=== PATIENT | female | born 1980 | race Two or more races ===

== ENCOUNTER 2024-04-30 05:35 | Emergency (ER) | payer OTHER ==
[~2024-04-30] VITALS: Ht 154.9 cm; Wt 63.6 kg
[2024-04-30] MEDS: ONDANSETRON HCL 4 MG/2 ML VIAL IV ONE (06:32)
[2024-04-30] MEDS: MORPHINE SULFATE 4 MG/ML SYR/VIAL IV ONE (06:32)
[2024-04-30] MEDS: SODIUM CHLORIDE 0.9% 1,000 ML IV ONE (06:32)
[2024-04-30] MEDS: KETOROLAC TROMETH 30 MG/ML 1ML VIAL IV ONE (08:33)
[2024-04-30] MEDS: SODIUM CHLORIDE 0.9% 1,000 ML IVB ONE (08:37)
[2024-04-30] MEDS: METOCLOPRAMIDE HCL 5MG/ml INJ 2ml VIAL IV ONE (08:38)
[2024-04-30 08:42] LABS: Urine Bacteria FEW /hpf (None Seen); Urine Blood 2+ /uL (Negative); Urine Clarity Clear (Clear); Urine Color Light-Yellow (Yellow); Urine Mucus FEW (None Seen); Urine Protein, UAD TRACE (Negative); Urine Specific Gravity 1.011 (1.001-1.035); Urine Urobilinogen Normal (Negative); Urine WBC 81 /hpf (0 - 5)
[2024-04-30 08:44] VITALS: PULSE 75; RESP 18; O2SAT 100
[2024-04-30 09:22] LABS: Basophils # (auto) 0.1 10 ^3/uL (0-0.2); Basophils % (auto) 0.7 % (0.0-2.0); Eosinophils # (auto) 0 10 ^3/uL (0-0.8); Eosinophils % (auto) 0.1 % (0.0-7.0); Hematocrit 36.8 % (36.0-46.0); Hemoglobin 12.5 g/dL (12.2-16.2); Lymphocytes # (auto) 0.7 10 ^3/uL (0.4-5.4); Mean Corpuscular Hemoglobin 28.1 pg (28.0-32.0); Mean Corpuscular Volume 82.5 fL (80.0-100.0); Monocytes # (auto) 0.6 10 ^3/uL (0-1.3); Monocytes % (auto) 3.8 % (0.0-12.0); Neutrophils # (auto) 13.3 10 ^3/uL (1.6-8.6); Neutrophils % (auto) 90.4 % (37.0-80.0); Platelet Count (auto) 284 10^3/uL (140-450); Red Blood Cells 4.46 10^6/uL (4.0-5.20); Red Cell Distribution Width 15.7 % (11.8-14.3); White Blood Cell 14.7 10^3/uL (4.4-10.8)
[2024-04-30 09:36] LABS: Chloride 111 mmol/L (98-107); Potassium 3.6 mmol/L (3.5-5.1); Sodium 140 mmol/L (136-145)
[2024-04-30 09:37] LABS: Anion Gap 8 (5-15); Carbon Dioxide 21 mmol/L (20-30)
[2024-04-30 09:38] LABS: Calcium 9.1 mg/dL (8.7-10.4)
[2024-04-30 09:42] LABS: Glucose 93 mg/dL (74-106)
[2024-04-30 09:43] LABS: BUN/Creatinine Ratio 13.6 (10.0-20.0); Blood Urea Nitrogen 12 mg/dL (9-23)
[2024-04-30] MEDS ORDERED: BACDST PO (09:47)
[2024-04-30] MEDS ORDERED: DICL50TA2 PO (09:47)
[2024-04-30 10:11] VITALS: BP 153/86; PULSE 73; RESP 16; TEMP 98.7; O2SAT 100
== END 2024-04-30 10:12 | disposition home or self-care (01) ==
LOC: ER 05:35
DX: N20.1 Calculus of ureter (principal); D25.1 Intramural leiomyoma of uterus; Z98.890 Other specified postprocedural states; Z79.899 Other long term (current) drug therapy
CPT/HCPCS: 36415; 74176; 80048; 81001; 81025; 85025; 96361; 96374; 96375; 99285; J1885; J2270; J2405; J7030

== ENCOUNTER 2024-08-19 20:07 | Emergency (ER) | payer OTHER ==
[~2024-08-19] VITALS: Ht 154.9 cm; Wt 63.5 kg
[~2024-08-19 20:07] MED LIST: BACDST PO; DICL50TA2 PO
--- NOTE | 2024-08-19 20:25 | ED.PDOC ---
History of Present Illness HPI Comments 44 y/o F, with a Hx of nephrolithiasis, HTN, uterine fibroids, tubal ligation, hernia repair, and C-sections, presents with spouse for c/o right-sided flank and back pain, right-sided facial numbness, and nausea, today. Patient endorses on sudden and unprovoked onset of symptoms an 1.5 hour prior to arrival at ED triage (1840), this evening. Patient comments on flank pain being a 10/10 and radiating towards her right-lower back, with no improvement or relief with prescribed pain medication she was given following dental work in June 2024. Patient also informs on being on her period, currently, and reports no recent injuries, sick contact, travel, or other relevant or pertinent Hx. She denies having any urinary symptoms, vomiting, diarrhea, constipation, facial droop, lightheadedness, or other associated symptoms or modifiers at this time. Time Seen by MD: 20:10 Reviewed Notes: Nurses Notes, Medications, Allergies Allergies: Coded Allergies: NO KNOWN ALLERGIES (Unverified , 04/30/24) Home Meds Active Scripts Sulfamethoxazole W/Trimethopri (Bactrim Ds Tablet) 1 Tab Tb, 1 TAB PO BID for 7 Days, #14 TAB Prov:DONAVAN BLISS MD 04/30/24 Diclofenac Potassium (Diclofenac Potassium) 50 Mg Tab, 1 TAB PO TIDP for 5 Days, #15 TAB Prov:DONAVAN BLISS MD 04/30/24 Information Source: Patient, Spouse Mode of Arrival: Ambulatory Severity: Moderate Timing: Hours Duration: Since onset Prehospital treatment: Other (see HPI) Past Medical History PAST MEDICAL HISTORY: HTN, Kidney Stones Surgical History: (4x), Hernia Repair, Tubal Ligation 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 Family History Family History: Reviewed,noncontributory to illness, No family hx of Cancer, No family hx of DM, No family hx of Heart blanca, No family hx of HTN, No family hx ofKidney blanca, No family hx of Liver blanca, No family hx of Lung blanca, No family hx of Stroke Social History Smoker: Non-Smoker Alcohol: Occasionally Drugs: Denies Drug Use Lives In: Home Constitutional: denies: chills, diaphoresis, fatigue, fever, malaise, sweats, weakness, others EENTM: denies: blurred vision, double vision, ear bleeding, ear discharge, ear drainage, ear pain, ear ringing, eye pain, eye redness, hearing loss, mouth pain, mouth swelling, nasal discharge, nose bleeding, nose congestion, nose pain, photophobia, tearing, throat pain, throat swelling, voice changes, others Respiratory: denies: cough, hemoptysis, orthopnea, SOB at rest, shortness of breath, SOB with excertion, stridor, wheezing, others Cardiovascular: denies: chest pain, dizzy spells, diaphoresis, Dyspnea on exertion, edema, irregular heart beat, left arm pain, lightheadedness, palpitations, PND, syncope, others Gastrointestinal: reports: nausea; denies: abdomen distended, abdominal pain, blood streaked bowels, constipated, diarrhea, dysphagia, difficulty swallowing, hematemesis, melena, poor appetite, poor fluid intake, rectal bleeding, rectal pain, vomiting, others Genitourinary: reports: flank pain (right-sided); denies: abnormal vagina bleeding, burning, dyspareunia, dysuria, frequency, hematuria, incontinence, pain, , vagina discharge, urgency, others Neurological: reports: numbness (right-sided facial numbness ); denies: dizziness, fainting, headache, left sided numbness, left sided weakness, paresthesia, pre-existing deficit, right sided numbness, right sided weakness, seizure, speech problems, tingling, tremors, weakness, others Musculoskeletal: reports: back pain (right-sided ); denies: gout, joint pain, joint swelling, muscle pain, muscle stiffness, neck pain, others Integumetry: denies: bruises, change in color, change in hair/nails, dryness, laceration, lesions, lumps, rash, wounds, others Allergic/Immunocompromised: denies: Difficulty Healing, Frequent Infections, Hives, Itching, others Hematologic/Lymphatic: denies: anemia, blood clots, easy bleeding, easy bruising, swollen glands, others Endocrine: denies: excessive hunger, excessive sweating, excessive thirst, excessive urination, flushing, intolerance to cold, intolerance to heat, unexplained weight gain, unexplained weight loss, others Psychiatric: denies: anxiety, bipolar disorder, depression, hopeless, panic disorder, schizophrenia, sleepless, suicidal, others All Other Systems: Reviewed and Negative Physical Exam General Appearance: Moderate Distress HEENT: Normal ENT Inspection, Pharynx Normal, TMs Normal Neck: Full Range of Motion, Non-Tender, Normal, Normal Inspection Respiratory: Chest Non-Tender, Lungs Clear, No Accessory Muscle Use, No Respiratory Distress, Normal Breath Sounds Cardiovascular: No Edema, No JVD, No Murmur, No Gallop, Normal Peripheral Pulses, Regular Rate/Rhythm Breast Exam: Deferred Gastrointestinal: No Organomegaly, Non Tender, No Pulsatile Mass, Normal Bowel Sounds, Soft Genitalia: Deferred Pelvic: Deferred Rectal: Deferred Extremities: No calf tenderness, Normal capillary refill, No pedal edema Musculoskeletal : Location: Right Extremity Location: Back Apperance: Tenderness: Moderate Neurologic: Alert, therapeutic recreation leader II-XII nml as Tested, No Motor Deficits, Normal Affect, Normal Mood, No Sensory Deficits Cerebellar Function: Normal Reflexes: Normal Skin: Dry, Normal Color, Warm Lymphatic: No Adenopathy Was a procedure done? Was a procedure done?: No Differential Dx Considerations may include: nephrolithiasis, ovarian cysts, ovarian torsion, uterine fibroids, pyelonephritis, cystitis, cholecystitis, cholelithiasis, acute abdomen, musculoskeletal pain X-Ray, Labs, Meds, VS Vital Signs Date Time Temp Pulse Resp B/P (MAP) Pulse Ox O2 Delivery O2 Flow Rate FiO2 08/19/24 20:31 93 18 181/100 08/19/24 20:15 97.5 93 18 181/100 (127) 99 Lab Test 08/19/24 20:54 08/19/24 20:44 Range/Units White Blood Count Pending Red Blood Count Pending Hemoglobin Pending Hematocrit Pending Mean Corpuscular Volume Pending Mean Corpuscular Hemoglobin Pending Mean Corpuscular Hemoglobin Concent Pending Red Cell Distribution Width Pending Platelet Count Pending Mean Platelet Volume Pending Neutrophils (%) (Auto) Pending Lymphocytes (%) (Auto) Pending Monocytes (%) (Auto) Pending Basophils (%) (Auto) Pending Neutrophils # (Auto) Pending Lymphocytes # (Auto) Pending Monocytes # (Auto) Pending Sodium Level Pending Potassium Level Pending Chloride Level Pending Carbon Dioxide Level Pending Anion Gap Pending Blood Urea Nitrogen Pending Creatinine Pending Glomerular Filtration Rate Calc Pending BUN/Creatinine Ratio Pending Serum Glucose Pending Calcium Level Pending Urine Color Red H Yellow Urine Clarity Ex.turbid Clear Urine pH 6.0 5.0-9.0 Urine Specific Bath 1.009 1.001-1.035 Urine Protein 2+ H Negative Urine Ketones Negative Negative Urine Blood 3+ H Negative /uL Urine Nitrite Negative Negative Urine Bilirubin Negative Negative Urine Urobilinogen Normal Negative mg/dL Urine Leukocyte Esterase 1+ Negative /uL Urine RBC 2995 0 - 4 /hpf Urine WBC None seen 0 - 5 /hpf Urine Squamous Epithelial Cells None seen <5 /hpf Urine Bacteria None seen None Seen /hpf Urine Glucose Normal Normal mg/dL Current Medications Medications (Trade) Dose Ordered Sig/Rodrigue Route Start Time Stop Time Status Last Admin Ondansetron HCl (Zofran) 4 mg ONCE ONCE IV 08/19/24 20:15 08/19/24 20:16 DC 08/19/24 20:30 Sodium Chloride 1,000 ml @ 1,000 mls/hr Q1H ONCE IVB 08/19/24 20:15 08/19/24 21:14 DC 08/19/24 20:31 Morphine Sulfate 4 mg ONCE ONCE IV 08/19/24 20:15 08/19/24 20:16 DC 08/19/24 20:31 Ketorolac Tromethamine (Toradol Injection) 30 mg ONCE ONCE IV 08/19/24 20:15 08/19/24 20:17 DC 08/19/24 20:30 CT scan of the abdomen and pelvis shows: IMPRESSION: 1. Moderate right hydroureteronephrosis. No obstructing calculus along the course of the right ureter. 2. 7 mm calculus in the interpolar right kidney. 3. Anemia suggested. Correlate with CBC. 4. Enlarged fibroid uterus. 5. Right ovarian cyst which could reflect a follicular cyst if the patient is still menstruating. Correlate with clinical history. The urine test is positive for blood The patient was given Zofran 4 mg IV push The patient was given a 1 L bolus of normal saline The patient was given morphine 4 mg IV push for the pain The patient was given Toradol 30 mg IV push The patient was still having pain so we did repeat the dose of morphine 4 mg IV push Patient signed out to Dr. Newton Patient is a [facility] patient and so we are contacting [facility] for either transfer for authorization for admission Images Reviewed?: Images reviewed and evaluated by me Time of 1ST Reevaluation: 20:40 Reevaluation 1ST: Unchanged Patient Education/Counseling: Diagnosis, Treatment, Prognosis Family Education/Counseling: Diagnosis, Treatment, Prognosis Departure 1 Departure Time of Disposition: 21:34 Impression: Primary Impression: Right flank pain Additional Impression: Ureterolithiasis Disposition: 30 STILL A PATIENT Condition: Fair Critical Care Note Critical Care Time?: No Stability Stability form required: No Heart Score Heart Score: Heart Score Response (Comments) Value History N/A 0 EKG N/A 0 Age N/A 0 Risk Factors N/A 0 Troponin N/A 0 Total 0 I personally scribed for FATOUMATA SIERRA MD ([email or web address]) on 08/19/24 at 20:25. Electronically submitted by Grayson Pelayo ([email or web address]). FATOUMATA SIERRA MD Aug 19, 2024 20:25
[2024-08-19] MEDS: ONDANSETRON HCL 4 MG/2 ML VIAL IV ONE (20:30)
[2024-08-19] MEDS: KETOROLAC TROMETH 30 MG/ML 1ML VIAL IV ONE (20:30)
[2024-08-19] MEDS: SODIUM CHLORIDE 0.9% 1,000 ML IVB ONE (20:31)
[2024-08-19] MEDS: MORPHINE SULFATE 4 MG/ML SYR/VIAL IV ONE ×2 (20:31→22:21)
[2024-08-19 20:47] LABS: Urine Bacteria None Seen /hpf (None Seen); Urine WBC None Seen /hpf (0 - 5)
[2024-08-19 21:06] LABS: Urine Blood 3+ /uL (Negative); Urine Clarity Ex.Turbid (Clear); Urine Color Red (Yellow); Urine Protein, UAD 2+ (Negative); Urine Specific Gravity 1.009 (1.001-1.035); Urine Urobilinogen Normal (Negative)
--- NOTE | 2024-08-19 21:16 | DVH ---
CLINICAL HISTORY: right flank pain TECHNIQUE: CT of the abdomen and pelvis was performed without intravenous contrast. This exam was per formed according to our departmental dose optimization program. Up-to-date CT equipment and radiation dose reduction techniques are utilized as appropriate. WID: COMPARISON: CT CT AB PEL WO CON-NO ORAL OR IV on DOS: 04/30/24 FINDINGS: Lower Thorax: Partially imaged bilateral breast implants. Normal-sized heart. Slight hypodensity of t he blood pool relative to the myocardium indicative of anemia. Unchanged sub 5 mm left lower lobe pul monary nodules on series 3 images 15 and 22 Liver and Biliary system: Unremarkable. Spleen: Unremarkable. Adrenal Glands and Kidneys: Normal adrenal glands. There is moderate right hydroureteronephrosis. No obstructing calculus along the course of the right ureter. There is a 7 mm calculus in the interpola r right kidney. Normal left kidney. Pancreas and Retroperitoneum: Unremarkable. Aorta and Major Vessels: Normal caliber aortoiliac vessels. Trace calcified plaque in the aortoiliac vessels. Bowel, Mesentery and Peritoneal space: Normal caliber small and large bowel. Normal appendix. No free air or fluid collection. Pelvis: Enlarged fibroid uterus. there is a right ovarian/ adnexal cyst measuring 3.6 cm on series 2, image 60. Normal minimally distended urinary bladder. There is no pelvic lymphadenopathy. Abdominal wall and Osseous Structures: Minor Lower thoracic and lumbar spondylosis. No destructive os seous lesion IMPRESSION: 1. Moderate right hydroureteronephrosis. No obstructing calculus along the course of the right urete r. 2. 7 mm calculus in the interpolar right kidney. 3. Anemia suggested. Correlate with CBC. 4. Enlarged fibroid uterus. 5. Right ovarian cyst which could reflect a follicular cyst if the patient is still menstruating. Co rrelate with clinical history.
[2024-08-19 21:33] LABS: Basophils # (auto) 0 10 ^3/uL (0-0.2); Basophils % (auto) 0.4 % (0.0-2.0); Eosinophils # (auto) 0.3 10 ^3/uL (0-0.8); Eosinophils % (auto) 6.3 % (0.0-7.0); Hematocrit 33.7 % (36.0-46.0); Hemoglobin 11.3 g/dL (12.2-16.2); Lymphocytes # (auto) 2.5 10 ^3/uL (0.4-5.4); Lymphocytes % (auto) 46.6 % (10.0-50.0); Mean Corpuscular Hemoglobin 28.6 pg (28.0-32.0); Mean Corpuscular Hgb Conc. 33.7 g/dL (32.0-36.0); Mean Corpuscular Volume 84.7 fL (80.0-100.0); Monocytes # (auto) 0.5 10 ^3/uL (0-1.3); Neutrophils % (auto) 36.7 % (37.0-80.0); Nucleated Red Blood Cells % 0.2 %; Platelet Count (auto) 303 10^3/uL (140-450); Red Blood Cells 3.97 10^6/uL (4.0-5.20); Red Cell Distribution Width 15.4 % (11.8-14.3); White Blood Cell 5.3 10^3/uL (4.4-10.8)
[2024-08-19 21:38] LABS: Potassium 3.9 mmol/L (3.5-5.1); Sodium 140 mmol/L (136-145)
[2024-08-19 21:39] LABS: Anion Gap 9 (5-15); Calcium 9.1 mg/dL (8.7-10.4); Carbon Dioxide 23 mmol/L (20-31)
[2024-08-19 21:44] LABS: BUN/Creatinine Ratio 15.4 (10.0-20.0); Blood Urea Nitrogen 14 mg/dL (9-23); Glucose 89 mg/dL (74-106)
[2024-08-19 22:16] LABS: Chloride 108 mmol/L (98-107)
[2024-08-19 22:30] VITALS: PULSE 78; RESP 16; O2SAT 96
[2024-08-19 23:13] VITALS: BP 158/99; PULSE 81; RESP 19; O2SAT 97
== END 2024-08-19 23:22 | disposition left against medical advice (07) ==
LOC: ER 20:07
DX: N13.2 Hydronephrosis with renal and ureteral calculous obstruction (principal); M54.59 Other low back pain; I10 Essential (primary) hypertension; Z87.442 Personal history of urinary calculi; Z98.890 Other specified postprocedural states
CPT/HCPCS: 36415; 74176; 80048; 81001; 85025; 96361; 96374; 96375; 96376; 99285; J1885; J2270; J2405; J7030

== ENCOUNTER 2024-09-01 21:02 | Emergency (ER) | payer OTHER ==
[~2024-09-01] VITALS: Ht 160 cm; Wt 59.1 kg
[2024-09-01] MEDS: ONDANSETRON HCL 4 MG/2 ML VIAL IV ONE (21:15)
[2024-09-01] MEDS: fentaNYL CITRATE 100 MCG/2 ML VL IV ONE (21:15)
[2024-09-01] MEDS: SODIUM CHLORIDE 0.9% 1,000 ML IV ONE ×2 (21:15)
--- NOTE | 2024-09-01 21:26 | ED.PDOC ---
History of Present Illness HPI Comments 44 y/o F, with a Hx of uterine fibroids, nephrolithiasis, hernia repair, tubal ligation, and 4xC-sections, is BIBA for c/o non-radiating, right-sided flank pain and urine incontinence, today. Per EMS report, patient was commented to have sudden onset on pain 45x minutes prior to ED arrival, this evening. She is stated to have been evaluated for a previous onset of similar pain in the past, recently, and was told on having kidney stone prior to leaving [facility] during previous ED visits, due to not wanting to be transferred to another facility at that time. En route, patient was given Tylenol, with minimal improvement. She denies having any dysuria, hematuria, fever, chills, or other associated symptoms or modifiers at this time. Chief Complaint: Flank Pain Time Seen by MD: 21:10 Reviewed Notes: Nurses Notes, Felt Cutting Machine Operator Notes, Medications, Allergies Allergies: Coded Allergies: NO KNOWN ALLERGIES (Unverified , 04/30/24) Home Meds Active Scripts Sulfamethoxazole W/Trimethopri (Bactrim Ds Tablet) 1 Tab Tb, 1 TAB PO BID for 7 Days, #14 TAB Prov:DONAVAN BLISS MD 04/30/24 Diclofenac Potassium (Diclofenac Potassium) 50 Mg Tab, 1 TAB PO TIDP for 5 Days, #15 TAB Prov:DONAVAN BLISS MD 04/30/24 Information Source: Patient, Emergency Med Personnel Mode of Arrival: EMS Severity: Moderate Timing: Minutes Duration: Since onset Prehospital treatment: 12 Lead EKG, Tax Attorney, Pain Meds (Tylenol ) Past Medical History PAST MEDICAL HISTORY: HTN, Kidney Stones Surgical History: , Hernia Repair, 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 Family History Family History: Reviewed,noncontributory to illness, No family hx of Cancer, No family hx of DM, No family hx of Heart blanca, No family hx of HTN, No family hx ofKidney blanca, No family hx of Liver blanca, No family hx of Lung blanca, No family hx of Stroke Social History Smoker: Non-Smoker Alcohol: Occasionally Drugs: Denies Drug Use Lives In: Home Genitourinary: reports: flank pain (right side ), incontinence (urine ) All Other Systems: Reviewed and Negative (negative unless otherwise stated above or in HPI) Physical Exam General Appearance: Moderate Distress, Normal HEENT: Normal ENT Inspection, Pharynx Normal, TMs Normal Neck: Full Range of Motion, Non-Tender, Normal, Normal Inspection Respiratory: Chest Non-Tender, Lungs Clear, No Accessory Muscle Use, No Respiratory Distress, Normal Breath Sounds Cardiovascular: No Edema, No JVD, No Murmur, No Gallop, Normal Peripheral Pulses, Regular Rate/Rhythm Breast Exam: Deferred Gastrointestinal: No Organomegaly, Non Tender, No Pulsatile Mass, Normal Bowel Sounds, Soft Genitalia: Deferred Pelvic: Tender Adnexa (Right-sided moderate tenderness) Rectal: Deferred Extremities: No calf tenderness, Normal capillary refill, Normal inspection, Normal range of motion, Non-tender, No pedal edema Musculoskeletal : Location: Right Extremity Location: Other (CVA) Apperance: Normal, Tenderness Neurologic: Alert, light bulb tester II-XII nml as Tested, No Motor Deficits, Normal Affect, Normal Mood, No Sensory Deficits Cerebellar Function: Normal Reflexes: Normal Skin: Dry, Normal Color, Warm Lymphatic: No Adenopathy Was a procedure done? Was a procedure done?: No Differential Dx Considerations may include: nephrolithiasis, ovarian cysts, ovarian torsion, uterine fibroids X-Ray, Labs, Meds, VS Vital Signs Date Time Temp Pulse Resp B/P (MAP) Pulse Ox O2 Delivery O2 Flow Rate FiO2 09/01/24 21:15 156/80 09/01/24 21:04 98.8 96 20 156/80 (105) 96 Lab Test 09/01/24 21:55 Range/Units White Blood Count Pending Red Blood Count Pending Hemoglobin Pending Hematocrit Pending Mean Corpuscular Volume Pending Mean Corpuscular Hemoglobin Pending Mean Corpuscular Hemoglobin Concent Pending Red Cell Distribution Width Pending Platelet Count Pending Mean Platelet Volume Pending Neutrophils (%) (Auto) Pending Lymphocytes (%) (Auto) Pending Monocytes (%) (Auto) Pending Basophils (%) (Auto) Pending Neutrophils # (Auto) Pending Lymphocytes # (Auto) Pending Monocytes # (Auto) Pending Sodium Level Pending Potassium Level Pending Chloride Level Pending Carbon Dioxide Level Pending Anion Gap Pending Blood Urea Nitrogen Pending Creatinine Pending Glomerular Filtration Rate Calc Pending BUN/Creatinine Ratio Pending Serum Glucose Pending Calcium Level Pending Total Bilirubin Pending Aspartate Amino Transferase (AST) Pending Alanine Aminotransferase (ALT) Pending Alkaline Phosphatase Pending Total Protein Pending Albumin Pending Current Medications Medications (Trade) Dose Ordered Sig/Rodrigue Route Start Time Stop Time Status Last Admin Sodium Chloride 1,000 ml @ 1,000 mls/hr Q1H ONCE IV 09/01/24 21:15 09/01/24 22:14 09/01/24 21:15 Ondansetron HCl (Zofran) 4 mg ONCE ONCE IV 09/01/24 21:15 09/01/24 21:17 DC 09/01/24 21:15 Fentanyl Citrate 100 mcg ONCE ONCE IV 09/01/24 21:15 09/01/24 21:17 DC 09/01/24 21:15 Signed PATIENT: RAYMOND CULLEN ACCT: [id number] UNIT: [id number] : 1980 LOC: ER ROOM / BED: / AGE / SEX: 44 / F ADM STATUS: REG ER SERVICE 13 ORDERING PHYSICIAN: ANDREINA ARCE MD PROCEDURE(s): ABPL - CT AB PEL WO CON-NO ORAL OR IV REASON: kidney stones ORDER NUMBER(s): [id number], ACCESSION NUMBER(s): [id number] Exam: CT CT AB PEL WO CON-NO ORAL OR IV History: kidney stones Comparison Study: CT abdomen pelvis 08/19/2024 TECHNIQUE: Multidetector CT of the abdomen was performed from lung bases to pubic symphysis. Imaging was performed without IV contrast. Axial, coronal and sagittal multiplanar reformats were obtained from the axial data set by the technologist. Radiation Dose Information: CT Dose: CTDI volume is 5.36 mGy. Dose-length product is 301.14 mGy*cm FINDINGS: Evaluation of solid organs is limited due to lack of intravenous contrast use. Findings: Lung Bases: No acute or significant lung base finding. Normal heart size. No pleural or pericardial effusion. Liver: The liver is normal in size. No focal lesions. Gallbladder and Biliary Tree: Unremarkable Spleen: Unremarkable Pancreas: The pancreas is grossly normal in appearance. Adrenal Glands: Unremarkable Kidneys: Moderate right hydro nephro ureter. No definite obstructing calculus is appreciated. 0.7 cm calculus at the right midpole kidney. The left kidney appears normal. Bladder: Grossly unremarkable for degree of distention. Bowel: The stomach is grossly normal in appearance. Small bowel and colon are normal in caliber and distribution. The appendix is not visualized; however, no secondary findings of acute appendicitis identified. Ascites: Absent Lymphadenopathy: No mesenteric, retroperitoneal or periportal lymphadenopathy. Abdominal Wall and Mesentery: Unremarkable. Vasculature: The visualized abdominal aorta is normal in size and caliber. Evaluation of abdominal and pelvic vessels is limited due to lack of intravenous contrast. Pelvic Organs: Prominent, fibroid uterus. Right adnexal 3.7 cm cystic structure. Musculoskeletal: No aggressive focal bony lesions, acute fractures or dislocation. Soft tissues: Unremarkable IMPRESSION: 1. Moderate right hydro nephro ureter, similar to 12/19/2023. No definite obstructing ureteral calculus is appreciated. 2. Right midpole kidney 0.7 cm calculus. 3. Right adnexal cystic lesion measuring 3.7 cm. Could be further evaluated with pelvic ultrasound. 4. Fibroid uterus. Radiation optimization: All CT scans at this facility use at least one of these dose optimization techniques: automated exposure control mA and/or kV adjustment per patient size (includes targeted exams where dose is matched to clinical indication) or iterative reconstruction. HS:Y Labs are pending. Patient was given fentanyl and Toradol for pain. The patient will be admitted to the hospitalist for further evaluation and care for kidney stone in right and on adnexal cysts. Urology will be consulted. Time of 1ST Reevaluation: 21:40 Reevaluation 1ST: Unchanged Patient Education/Counseling: Diagnosis, Treatment Family Education/Counseling: No Family Present Departure 1 Departure Time of Disposition: 22:05 Impression: Primary Impression: Right ureteral calculus Additional Impression: Adnexal cyst Disposition: ADMITTED INPATIENT Admit to: Med Surg Condition: Guarded Critical Care Note Critical Care Time?: No Stability Stability form required: No Heart Score Heart Score: Heart Score Response (Comments) Value History N/A 0 EKG N/A 0 Age N/A 0 Risk Factors N/A 0 Troponin N/A 0 Total 0 I personally scribed for ANDREINA ARCE MD ([email or web address]) on 09/01/24 at 21:26. Electronically submitted by Grayson Pelayo ([email or web address]). ANDREINA ARCE MD Sep 01, 2024 21:26
--- NOTE | 2024-09-01 21:51 | DVH ---
Exam: CT CT AB PEL WO CON-NO ORAL OR IV History: kidney stones Comparison Study: CT abdomen pelvis 08/19/2024 TECHNIQUE: Multidetector CT of the abdomen was performed from lung bases to pubic symphysis. Imaging was performed without IV contrast. Axial, coronal and sagittal multiplanar reformats were obtained fr om the axial data set by the technologist. Radiation Dose Information: CT Dose: CTDI volume is 5.36 mGy. Dose-length product is 301.14 mGy*cm FINDINGS: Evaluation of solid organs is limited due to lack of intravenous contrast use. Findings: Lung Bases: No acute or significant lung base finding. Normal heart size. No pleural or pericardial effusion. Liver: The liver is normal in size. No focal lesions. Gallbladder and Biliary Tree: Unremarkable Spleen: Unremarkable Pancreas: The pancreas is grossly normal in appearance. Adrenal Glands: Unremarkable Kidneys: Moderate right hydro nephro ureter. No definite obstructing calculus is appreciated. 0.7 cm calculus at the right midpole kidney. The left kidney appears normal. Bladder: Grossly unremarkable for degree of distention. Bowel: The stomach is grossly normal in appearance. Small bowel and colon are normal in caliber and d istribution. The appendix is not visualized; however, no secondary findings of acute appendicitis id entified. Ascites: Absent Lymphadenopathy: No mesenteric, retroperitoneal or periportal lymphadenopathy. Abdominal Wall and Mesentery: Unremarkable. Vasculature: The visualized abdominal aorta is normal in size and caliber. Evaluation of abdominal a nd pelvic vessels is limited due to lack of intravenous contrast. Pelvic Organs: Prominent, fibroid uterus. Right adnexal 3.7 cm cystic structure. Musculoskeletal: No aggressive focal bony lesions, acute fractures or dislocation. Soft tissues: Unremarkable IMPRESSION: 1. Moderate right hydro nephro ureter, similar to 12/19/2023. No definite obstructing ureteral calcul us is appreciated. 2. Right midpole kidney 0.7 cm calculus. 3. Right adnexal cystic lesion measuring 3.7 cm. Could be further evaluated with pelvic ultrasound. 4. Fibroid uterus. Radiation optimization: All CT scans at this facility use at least one of these dose optimization te chniques: automated exposure control mA and/or kV adjustment per patient size (includes targeted exa ms where dose is matched to clinical indication) or iterative reconstruction. HS:Y
[2024-09-01 22:22] LABS: Alanine Aminotransferase 17 U/L (7-40); Albumin 4.4 g/dL (3.2-4.8); Alkaline Phosphatase 64 U/L (46-116); Anion Gap 9 (5-15); Aspartate Aminotransferase 13 U/L (13-40); BUN/Creatinine Ratio 11.9 (10.0-20.0); Bilirubin, Total 0.4 mg/dL (0.2-1.0); Blood Urea Nitrogen 13 mg/dL (9-23); Calcium 10.1 mg/dL (8.7-10.4); Carbon Dioxide 25 mmol/L (20-31); Chloride 104 mmol/L (98-107); Glucose 101 mg/dL (74-106); Potassium 4.1 mmol/L (3.5-5.1); Sodium 138 mmol/L (136-145); Total Protein 7.1 g/dL (5.7-8.2)
[2024-09-01 22:25] LABS: Basophils # (auto) 0.1 10 ^3/uL (0-0.2); Basophils % (auto) 1.3 % (0.0-2.0); Eosinophils # (auto) 0.2 10 ^3/uL (0-0.8); Eosinophils % (auto) 3.7 % (0.0-7.0); Hematocrit 28.1 % (36.0-46.0); Hemoglobin 9.7 g/dL (12.2-16.2); Lymphocytes # (auto) 1.4 10 ^3/uL (0.4-5.4); Lymphocytes % (auto) 26.1 % (10.0-50.0); Mean Corpuscular Hemoglobin 28.6 pg (28.0-32.0); Mean Corpuscular Hgb Conc. 34.6 g/dL (32.0-36.0); Mean Corpuscular Volume 82.6 fL (80.0-100.0); Monocytes # (auto) 0.4 10 ^3/uL (0-1.3); Monocytes % (auto) 8.4 % (0.0-12.0); Neutrophils # (auto) 3.2 10 ^3/uL (1.6-8.6); Neutrophils % (auto) 60.5 % (37.0-80.0); Nucleated Red Blood Cells % 0.1 %; Platelet Count (auto) 458 10^3/uL (140-450); Red Blood Cells 3.41 10^6/uL (4.0-5.20); Red Cell Distribution Width 14.9 % (11.8-14.3); White Blood Cell 5.3 10^3/uL (4.4-10.8)
[2024-09-01 23:05] LABS: Urine Bacteria FEW /hpf (None Seen); Urine Blood TRACE /uL (Negative); Urine Clarity Clear (Clear); Urine Color Colorless (Yellow); Urine Protein, UAD Negative (Negative); Urine Specific Gravity 1.002 (1.001-1.035); Urine Squamous Epithelial Cell FEW /hpf (<5); Urine Urobilinogen Normal (Negative); Urine WBC 6 /hpf (0 - 5); Urine pH 7.5 (5.0-9.0)
[2024-09-02] MEDS: KETOROLAC TROMETH 30 MG/ML 1ML VIAL IV ONE (02:06)
[2024-09-02] MEDS: ONDANSETRON HCL 4 MG/2 ML VIAL IV ONE (02:06)
[2024-09-02] MEDS: fentaNYL CITRATE 100 MCG/2 ML VL IV ONE (02:08)
[2024-09-02] MEDS: LABETALOL HCL 20 MG/4 ML VL IV ONE (04:17)
[2024-09-02 08:08] VITALS: PULSE 87; RESP 16; O2SAT 99
[2024-09-02 09:50] VITALS: BP 139/88; PULSE 90; RESP 16; TEMP 98.1; O2SAT 99
== END 2024-09-02 10:06 | disposition short-term general hospital (02) ==
LOC: EDBD 21:02 → ER 21:02
DX: N20.2 Calculus of kidney with calculus of ureter (principal); I10 Essential (primary) hypertension; Z87.442 Personal history of urinary calculi; Z98.890 Other specified postprocedural states
CPT/HCPCS: 36415; 74176; 80053; 81001; 85025; 96361; 96374; 96375; 96376; 99285; J1885; J2405; J3010; J7030